=== PATIENT | female | born 1950 | race Caucasian/White ===

== ENCOUNTER → 2017-01-18 | Outpatient (CLI) | payer OTHER | LOC: FIMAGING 08:49 | PROVIDERS: ATTEND Internal Medicine | DX: Z12.31 Encounter for screening mammogram for malignant neoplasm of breast (principal) | CPT/HCPCS: G0202 ==

== ENCOUNTER → 2017-01-22 | Outpatient (CLI) | payer OTHER | LOC: BMCIMAGING 14:10 | PROVIDERS: ATTEND Internal Medicine | DX: M46.96 Unspecified inflammatory spondylopathy, lumbar region (principal) ==